=== PATIENT | female | born 1990 | race Two or more races ===

== ENCOUNTER 2020-06-20 20:40 | Emergency (ER) | payer BC ==
[2020-06-20] MEDS ORDERED: HYDROmorphone 1 MG/ML Syringe IVPUSH STA (21:28)
[2020-06-20] MEDS ORDERED: Ondansetron 4 MG/2 ML SDV IVPUSH ONE (21:28)
[2020-06-20] MEDS ORDERED: Sodium Chloride 0.9% 1,000 ML IV SCH (21:30)
--- NOTE | 2020-06-20 21:38 | EDM.PDOC ---
ED HPI GENERAL MEDICAL PROBLEM - General Chief Complaint: Gastrointestinal Problem Stated Complaint: SOB Time Seen by Provider: 06/20/20 21:18 Source of Information: Reports: Patient, Family () History Limitations: Reports: No Limitations - History of Present Illness INITIAL COMMENTS - FREE TEXT/NARRATIVE: Mrs. Quach is a very pleasant 29-year-old woman who now presents the ED with postoperative abdominal pain. She states that she underwent a laparoscopic cholecystectomy at [facility] this morning. She states she had she was doing well until around 20:20, when she developed right shoulder pain. She states that she was told that she might get such pain, due to air in the abdomen, but a short time later she developed right upper quadrant pain, particularly with inspiration, which she states she was not warned about. She states that the pain with inspiration is causing her to feel somewhat short of breath. She states that she took 1 tablet of oxycodone 5 mg around 20:50, without significant improvement in her pain, therefore she came to the ED for evaluation. The patient states that she has elevated LFTs, and has therefore been told not to take either ibuprofen or acetaminophen. Here in the ED, the patient's initial BP is found to be elevated 166/118, with bradycardia 55 bpm. She is afebrile, saturating 100% on room air. She appears to be uncomfortable, but in no acute distress. The patient states that she has been experiencing nausea and similar right upper quadrant abdominal pain since approximately 05/21/2020, when she underwent a laparoscopic sleeve gastrectomy. Otherwise, the patient denies having a recent fever, chills, sore throat, ear pain, nasal or sinus congestion, cough, dyspnea, chest pain, palpitations, vomiting, constipation, diarrhea, urinary symptoms, recent weight gain or weight loss, recent bloody bowel movements or black bowel movements, recent joint aches, headaches, or rashes. The patient's PCP is Nathalie Page NP. Her Bariatric Surgeon is Dr. Mindi Diaz, at [facility]. Her Senior Director Creative Services is Dr. Valeriano Sutherland. Right Upper Abdomen Pain Score (Numeric/FACES): 10 - Related Data Allergies Allergy/AdvReac Type Severity Reaction Status Date / Time adhesive Allergy Hives Verified 06/20/20 20:58 Penicillins Allergy Vomiting Verified 06/20/20 20:58 metal Allergy Hives Uncoded 06/20/20 20:58 Home Meds: Home Meds Famotidine 20 oz PO DAILY 06/20/20 [History] Folic Acid 1 mg PO DAILY 06/20/20 [History] Methotrexate 10 mg PO Q7D 06/20/20 [History] Omeprazole 20 mg PO DAILY 06/20/20 [History] Past Medical History Gastrointestinal History: Reports: GERD Musculoskeletal History: Reports: Other (See Below) (Psoriatic arthritis) Neurological History: Reports: Migraines Dermatologic History: Reports: Psoriasis - Past Surgical History GI Surgical History: Reports: Bariatric Procedure (laparoscopic sleeve gastrectomy 05/21/2020), Cholecystectomy (06/20/2020) Female Surgical History: Reports: Hysterectomy (partial) Social & Family History - Tobacco Use Tobacco Use Status *Q: Never Tobacco User Second Hand Smoke Exposure: No - Caffeine Use Caffeine Use: Reports: None - Alcohol Use Alcohol Use History: No - Recreational Drug Use Recreational Drug Use: No - Living Situation & Occupation Living situation: Reports: , with Spouse, with Family (2 kids) Occupation: Unemployed ED ROS GENERAL - Review of Systems Review Of Systems: Comprehensive ROS is negative, except as noted in HPI. ED EXAM, GI/ABD - Physical Exam Exam: See Below Exam Limited By: No Limitations General Appearance: Alert, WD/WN, Mild Distress (appears to be uncomfortable) Eyes: Bilateral: Normal Appearance, EOMI Ears: Normal External Exam, Hearing Grossly Normal Nose: Normal Inspection Throat/Mouth: Normal Inspection, Normal Lips, Normal Voice, No Airway Compromise Head: Atraumatic, Normocephalic Neck: Normal Inspection, Full Range of Motion Respiratory/Chest: No Respiratory Distress, Lungs Clear, Normal Breath Sounds, No Accessory Muscle Use Cardiovascular: Normal Peripheral Pulses, Regular Rate, Rhythm, No Edema, No Gallop, No JVD, No Murmur, No Rub GI/Abdominal Exam: Soft, No Organomegaly, No Distention, No Abnormal Bruit, No Mass, Pelvis Stable, Tender (right upper quadrant, plus appropriate fina- incisional tenderness), Abnormal Bowel Sounds (diminished) Back Exam: Normal Inspection, Full Range of Motion, NT Extremities: Normal Inspection, Normal Range of Motion, No Pedal Edema, Normal Capillary Refill Neurological: Alert, Oriented, Normal Cognition, No Motor/Sensory Deficits Psychiatric: Normal Affect Skin Exam: Warm, Dry, Intact, Normal Color, No Rash Course - Vital Signs Last Recorded V/S: Last Vital Signs Temp 36.3 C 06/20/20 20:52 Pulse 55 L 06/20/20 20:52 Resp 18 06/20/20 20:52 BP 166/118 H 06/20/20 20:52 Pulse Ox 100 06/20/20 20:52 - Orders/Labs/Meds Orders: Active Orders 24 hr Category Date Time Status Abdomen Pelvis w Cont [CT] Stat Exams 06/20/20 21:29 Taken Sodium Chloride 0.9% [Normal Saline] 1,000 ml Med 06/20/20 21:30 Active IV ASDIRECTED Sodium Chloride 0.9% [Saline Flush] Med 06/20/20 22:11 Active 10 ml FLUSH ONETIME PRN Medication Orders Sodium Chloride (Normal Saline) 1,000 mls @ 150 mls/hr IV ASDIRECTED MERARY Last Admin: 06/20/20 21:50 Dose: 150 mls/hr Documented by: BARBARA Sodium Chloride (Sodium Chloride 0.9% 10 Ml Syringe) 10 ml FLUSH ONETIME PRN PRN Reason: Keep Vein Open Last Admin: 06/20/20 23:07 Dose: 10 ml Documented by: Admin: 06/20/20 22:17 Dose: 10 ml Documented by: BARBARA Labs: Laboratory Tests 06/20/20 06/20/20 Range/Units 21:45 21:45 WBC 5.54 (3.98-10.04) K/mm3 RBC 4.84 (3.98-5.22) M/mm3 Hgb 14.0 (11.2-15.7) gm/dl Hct 41.0 (34.1-44.9) % MCV 84.7 (79.4-94.8) fl MCH 28.9 (25.6-32.2) pg MCHC 34.1 (32.2-35.5) g/dl RDW Std Deviation 40.6 (36.4-46.3) fL Plt Count 252 D (182-369) K/mm3 MPV 10.8 (9.4-12.3) fl Neutrophils % (Manual) 92 H (40-60) % Band Neutrophils % 0 (0-10) % Lymphocytes % (Manual) 8 L (20-40) % Atypical Lymphs % 0 % Monocytes % (Manual) 0 L (2-10) % Eosinophils % (Manual) 0 L (0.7-5.8) % Basophils % (Manual) 0 L (0.1-1.2) Platelet Estimate Adequate RBC Morph Comment Normal Sodium 142 (136-145) mEq/L Potassium 3.8 (3.5-5.1) mEq/L Chloride 103 (98-107) mEq/L Carbon Dioxide 25 (21-32) mEq/L Anion Gap 17.8 H (5-15) BUN 5 L (7-18) mg/dL Creatinine 0.9 (0.55-1.02) mg/dL Est Cr Clr Drug Dosing 74.92 mL/min Estimated GFR (MDRD) > 60 (>60) mL/min BUN/Creatinine Ratio 5.6 L (14-18) Glucose 149 H (74-106) mg/dL Calcium 9.5 (8.5-10.1) mg/dL Magnesium 2.3 (1.8-2.4) mg/dl Total Bilirubin 0.7 (0.2-1.0) mg/dL AST 74 H (15-37) U/L ALT 147 H (14-59) U/L Alkaline Phosphatase 79 (46-116) U/L Total Protein 7.9 (6.4-8.2) g/dl Albumin 4.3 (3.4-5.0) g/dl Globulin 3.6 gm/dL Albumin/Globulin Ratio 1.2 (1-2) Lipase 179 (73-393) U/L Meds: Medications Generic Name Dose Route Start Last Admin Trade Name Freq PRN Reason Stop Dose Admin Sodium Chloride 1,000 mls @ 150 mls/hr 06/20/20 21:30 06/20/20 21:50 Normal Saline IV 150 mls/hr ASDIRECTED MERARY Administration Sodium Chloride 10 ml 06/20/20 22:11 06/20/20 23:07 Sodium Chloride 0.9% 10 Ml Syringe FLUSH 10 ml ONETIME PRN Administration Keep Vein Open Discontinued Medications Generic Name Dose Route Start Last Admin Trade Name Freq PRN Reason Stop Dose Admin Diatrizoate Meglum/Diatrizoate Sod 40 ml 06/20/20 22:11 06/20/20 23:07 Diatrizoate Meglumine/Diatrizoate Sodium 37% 120 Ml Bottle PO 06/20/20 22:12 45 ml ONETIME ONE Administration Hydromorphone HCl 1 mg 06/20/20 21:28 06/20/20 21:52 Hydromorphone 1 Mg/Ml Syringe IVPUSH 06/20/20 21:29 1 mg ONETIME STA Administration Iopamidol 100 ml 06/20/20 22:11 06/20/20 23:07 Iopamidol 612 Mg/Ml 100 Ml Bottle IVPUSH 06/20/20 22:12 100 ml ONETIME ONE Administration Ondansetron HCl 4 mg 06/20/20 21:28 06/20/20 21:51 Ondansetron 4 Mg/2 Ml Sdv IVPUSH 06/20/20 21:29 4 mg ONETIME ONE Administration - Re-Assessments/Exams Free Text/Narrative Re-Assessment/Exam: 06/20/20 21:30 As above, the patient underwent a laparoscopic cholecystectomy at [facility] this morning, and states that she was doing well until about 20:20, when she developed right shoulder pain, followed by right upper quadrant pain with inspiration, to the point that it is difficult for her to take deep breaths at this time. No significant relief despite taking 1 tablet of oxycodone around 20:50. On examination, the patient has diminished bowel sounds, which would be expected at this point, and appropriate periincisional tenderness, along with right upper quadrant tenderness. My main concern is whether or not leak at the clip of the neck of the gallbladder, therefore I have ordered a work-up that includes several blood tests and a CT of the abdomen and pelvis with oral and IV contrast. In the meantime, the patient will be given IV Dilaudid, IV Zofran, and IV fluid. 06/20/20 22:33 The patient's CBC is unremarkable. Her CMP is remarkable for an anion gap slightly elevated at 17.8, but with a bicarbonate normal at 25. She has mild hyperglycemia of 149, and her AST/ALT are mildly elevated at 74/147, respectively, with the remainder of her CMP being unremarkable. Her magnesium level is within normal limits at 2.3. Her lipase level is within normal limits at 179. 06/20/20 23:34 CT of the abdomen and pelvis with oral and IV contrast is read by [facility] as: 1. Free intraperitoneal air which is likely related to the patient's stated recent cholecystectomy. 2. Small amount of fluid is present within the gallbladder fossa. This could be postoperative in nature. If there is concern for possible bile leak, consider HIDA scan. 06/20/20 23:[address] images to [facility]. 06/20/20 23:45 Case discussed with Yonathan at [facility] at 23:37. The CT images did not come through on their end. We will see if our fire range technician can push them, and Yonathan will call us back. 06/21/20 00:11 Yonathan called back at 23:37. The CT images never came across. She had contacted [facility] to see if they could push the images, but was unable. Case then discussed with Dr. Romo, Surgeon on-call at [facility]. She felt that the small amount of fluid reported by the Radiologist is not consistent with a bile leak. She recommended that I discharge the patient home, then have the patient contact the office of Dr. Stock in the morning. 06/21/20 00:15 Test results and my conversation with Dr. Romo discussed with the patient and her . She is agreeable with the plan. Departure - Departure Time of Disposition: 00:17 Disposition: Home, Self-Care 01 Condition: Good Clinical Impression: Status post cholecystectomy, Postoperative pain - Discharge Information *PRESCRIPTION DRUG MONITORING PROGRAM REVIEWED*: Not Applicable *COPY OF PRESCRIPTION DRUG MONITORING REPORT IN PATIENT [place]: Not Applicable Referrals: Nathalie Page NP [Primary Care Provider] - Valeriano Sutherland MD [Ordering Only Provider] - Forms: ED Department Discharge Additional Instructions: You were seen in the emergency room for upper right abdominal pain with painful breathing following a laparoscopic cholecystectomy Thursday. Work-up in the ER included several blood tests and a CT of your abdomen and pelvis with oral and IV contrast. Your entire work-up was unremarkable. The CT did not indicate a bile leak. Your case was discussed with the Surgeon Dr. Lynsey Romo, who felt that you are safe to discharge home, but she recommended that you contact the office of your Surgeon, Dr. Mindi Stock, in the morning. Dr. Stock may wish to see you or order additional tests. You may continue to take your current oxycodone as prescribed. If any other problems, please do not hesitate to return to the ER. Sepsis Event Note (ED) - Evaluation Sepsis Screening Result: No Definite Risk - Focused Exam Vital Signs: Vital Signs Temp Pulse Resp BP Pulse Ox 06/20/20 20:52 36.3 C 55 L 18 166/118 H 100 - My Orders Last 24 Hours: My Active Orders 06/20/20 21:29 Abdomen Pelvis w Cont [CT] Stat 06/20/20 21:30 Sodium Chloride 0.9% [Normal Saline] 1,000 ml IV ASDIRECTED 06/20/20 22:11 Sodium Chloride 0.9% [Saline Flush] 10 ml FLUSH ONETIME PRN - Assessment/Plan Last 24 Hours: My Active Orders 06/20/20 21:29 Abdomen Pelvis w Cont [CT] Stat 06/20/20 21:30 Sodium Chloride 0.9% [Normal Saline] 1,000 ml IV ASDIRECTED 06/20/20 22:11 Sodium Chloride 0.9% [Saline Flush] 10 ml FLUSH ONETIME PRN
[2020-06-20] MEDS ORDERED: Iopamidol 612 MG/ML 100 ML Bottle IVPUSH ONE (22:11)
[2020-06-20] MEDS ORDERED: Diatrizoate Meglumine/Diatrizoate Sodium 37% 120 ML Bottle PO ONE (22:11)
[2020-06-20] MEDS: Sodium Chloride 0.9% 10 ML Syringe FLUSH PRN ×2 (22:17→23:07)
--- NOTE | 2020-06-21 08:38 | CT ---
CT abdomen and pelvis Technique: Multiple axial sections were obtained from above the dome of the diaphragm inferiorly through the pubic symphysis. Intravenous and oral contrast were utilized. Delayed images were also obtained to the bladder. Reconstructed coronal and sagittal images were obtained. Findings: Small amount of free air is noted within the upper abdomen anterior to the liver compatible with recent surgery. Slight atelectasis is noted within the posterior right lung base. Liver contains no focal abnormality. Small amount of increased density is noted within the region of the gallbladder fossa containing a small amount of fluid most likely postsurgical from prior cholecystectomy. Spleen appears within normal limits. Minimal free air is noted posterior to the spleen. Pancreas is normal. Kidneys show symmetric contrast enhancement without hydronephrosis or mass. Abdominal aorta shows no aneurysm. No retroperitoneal adenopathy or mesenteric abnormalities are noted. Appendix is seen which is normal. No pelvic mass or adenopathy is appreciated. Delayed images shows contrast within the distal ureters and within the bladder. Soft tissue air is noted within the right anterior abdominal wall compatible with previous surgery. Bone window settings were reviewed which show no acute osseous abnormality. Impression: 1. Free air within the abdomen compatible with recent surgery. 2. Slight increased density within the gallbladder fossa which is most likely due to previous surgery. Small amount of adjacent fluid is seen which is likely incidental although difficult to completely exclude biliary leak if patient has correlating symptoms. 3. Soft tissue air within the right anterior abdominal wall compatible with previous surgery. 4. No other acute abnormality is appreciated. Diagnostic code #3 I agree with preliminary report from [facility], finalized on 06/21/20, 12:31 AM CDT, code 1
== END 2020-06-21 00:26 | disposition home or self-care (01) ==
LOC: JD.ED 20:40
DX: G89.18 Other acute postprocedural pain (principal); R10.9 Unspecified abdominal pain; K21.9 Gastro-esophageal reflux disease without esophagitis; Z79.899 Other long term (current) drug therapy; Z91.018 Allergy to other foods; Z88.0 Allergy status to penicillin; Z91.048 Other nonmedicinal substance allergy status; Z90.49 Acquired absence of other specified parts of digestive tract
CPT/HCPCS: 36415; 74177; 80053; 83690; 83735; 85007; 85027; 96374; 96375; 99284; J1170; J2405; J7030; Q9963; Q9967; 99283

== ENCOUNTER 2020-06-25 10:04 | Emergency (ER) | payer BC ==
[2020-06-25] MEDS ORDERED: Sodium Chloride 0.9% 10 ML Syringe FLUSH PRN (10:38)
[2020-06-25] MEDS ORDERED: Ondansetron 4 MG/2 ML SDV IVPUSH ONE (10:38)
[2020-06-25] MEDS ORDERED: HYDROmorphone 1 MG/ML Syringe IVPUSH ONE (10:40)
--- NOTE | 2020-06-25 10:44 | EDM.PDOC ---
ED HPI GENERAL MEDICAL PROBLEM - General Chief Complaint: Abdominal Pain Stated Complaint: ABDOMINAL PAIN Time Seen by Provider: 06/25/20 10:27 Source of Information: Reports: Patient, Provider History Limitations: Reports: No Limitations - History of Present Illness INITIAL COMMENTS - FREE TEXT/NARRATIVE: The patient presents from [facility] for abdominal pain, nausea and vomiting. The patient had a gastric sleeve done at [facility] in [place] by Dr Diaz on 05/21/20. A few weeks later she had trouble with her gallbladder and had that removed on 06/20/20. She has pain in the upper abdomen with both surgeries but there is now a different pain the past couple days to the left abdomen radiating to the back. She has nausea and she did vomit yesterday. She went to see Nathalie Page at the [facility] and she did labs. He WBC was normal. Her liver enzymes were elevated with an AST of 161 and ALT of 281. It was 39 and 91 five days ago. Her urine shows no UTI but she does have blood. She has no fever, chills, cough, congestion, chest pains, or shortness of breath. Onset: Gradual Duration: Day(s): Location: Reports: Abdomen, Back Quality: Reports: Sharp Severity: Severe Improves with: Reports: None Worsens with: Reports: None Associated Symptoms: Denies: Chest Pain, Cough, Fever/Chills, Headaches, Nausea/Vomiting, Shortness of Breath Left Abdomen Pain Score (Numeric/FACES): 7 - Related Data Allergies Allergy/AdvReac Type Severity Reaction Status Date / Time adhesive Allergy Hives Verified 06/25/20 10:34 Penicillins Allergy Vomiting Verified 06/25/20 10:34 metal Allergy Hives Uncoded 06/25/20 10:34 Home Meds: Home Meds Famotidine 20 mg PO DAILY 06/20/20 [History] Methotrexate 10 mg PO Q7D 06/20/20 [History] Hydrocodone/Acetaminophen [Hydrocodone-Acetamin 5-325 mg] 1 - 2 each PO Q6HR PRN #20 tablet 06/25/20 [Rx] Tamsulosin HCl [Flomax] 0.4 mg PO DAILY #7 cap.er.24h 06/25/20 [Rx] oxyCODONE HCl/Acetaminophen [Percocet 5-325 mg Tablet] 1 - 2 each PO Q6HR PRN #20 tablet 06/25/20 [Rx] Past Medical History Gastrointestinal History: Reports: GERD 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: Musculoskeletal History: Reports: Other (See Below) Other Musculoskeletal History: psoriatic arthritis Neurological History: Reports: Migraines Dermatologic History: Reports: Psoriasis - Past Surgical History GI Surgical History: Reports: Bariatric Procedure, Cholecystectomy Female Surgical History: Reports: Hysterectomy Social & Family History - Caffeine Use Caffeine Use: Reports: None - Living Situation & Occupation Living situation: Reports: , with Spouse, with Family (2 kids) Occupation: Unemployed ED ROS GENERAL - Review of Systems Review Of Systems: See Below Constitutional: Reports: No Symptoms HEENT: Reports: No Symptoms Respiratory: Reports: No Symptoms Cardiovascular: Reports: No Symptoms Endocrine: Reports: No Symptoms GI/Abdominal: Reports: Abdominal Pain, Nausea, Vomiting : Reports: No Symptoms Musculoskeletal: Reports: No Symptoms ED EXAM, RENAL/ - Physical Exam Exam: See Below Exam Limited By: No Limitations General Appearance: Alert, No Apparent Distress Ears: Normal External Exam Nose: Normal Inspection Head: Atraumatic, Normocephalic Neck: Normal Inspection Respiratory/Chest: No Respiratory Distress, Lungs Clear, Normal Breath Sounds Cardiovascular: Regular Rate, Rhythm, No Edema, No Murmur GI/Abdominal: Soft, No Organomegaly, No Mass, Tender (Mild tenderness to the left abdomen radiating to the left flank) Back Exam: No: CVA Tenderness (L) Extremities: Normal Inspection Course - Vital Signs Last Recorded V/S: Last Vital Signs Temp 97.5 F 06/25/20 10:30 Pulse 85 06/25/20 10:30 Resp 16 06/25/20 10:30 BP 150/99 H 06/25/20 10:30 Pulse Ox 99 06/25/20 10:30 - Orders/Labs/Meds Orders: Active Orders 24 hr Category Date Time Status Peripheral IV Care [RC] . DIRECTED Care 06/25/20 10:40 Active Sodium Chloride 0.9% [Normal Saline] 1,000 ml Med 06/25/20 10:45 Active IV ASDIRECTED Sodium Chloride 0.9% [Saline Flush] Med 06/25/20 10:38 Active 10 ml FLUSH ASDIRECTED PRN ED Antiemetic Medication Reflex [OM.PC] Stat Oth 06/25/20 10:40 Ordered Peripheral IV Insertion Adult [OM.PC] Stat Oth 06/25/20 10:38 Ordered Medication Orders Sodium Chloride (Normal Saline) 1,000 mls @ 125 mls/hr IV ASDIRECTED MERARY Last Admin: 06/25/20 11:05 Dose: 125 mls/hr Documented by: DEBBIE Sodium Chloride (Sodium Chloride 0.9% 10 Ml Syringe) 10 ml FLUSH ASDIRECTED PRN PRN Reason: Keep Vein Open Last Admin: 06/25/20 11:07 Dose: 10 ml Documented by: DEBBIE Labs: Laboratory Tests 06/25/20 Range/Units 11:00 Lipase 201 (73-393) U/L Meds: Medications Generic Name Dose Route Start Last Admin Trade Name Freq PRN Reason Stop Dose Admin Sodium Chloride 1,000 mls @ 125 mls/hr 06/25/20 10:45 06/25/20 11:05 Normal Saline IV 125 mls/hr ASDIRECTED MERARY Administration Sodium Chloride 10 ml 06/25/20 10:38 06/25/20 11:07 Sodium Chloride 0.9% 10 Ml Syringe FLUSH 10 ml ASDIRECTED PRN Administration Keep Vein Open Discontinued Medications Generic Name Dose Route Start Last Admin Trade Name Freq PRN Reason Stop Dose Admin Hydromorphone HCl 1 mg 06/25/20 10:40 06/25/20 11:06 Hydromorphone 1 Mg/Ml Syringe IVPUSH 06/25/20 10:41 1 mg ONETIME ONE Administration Ondansetron HCl 4 mg 06/25/20 10:38 06/25/20 11:05 Ondansetron 4 Mg/2 Ml Sdv IVPUSH 06/25/20 10:39 4 mg ONETIME ONE Administration - Re-Assessments/Exams Free Text/Narrative Re-Assessment/Exam: 06/25/20 11:09 I ordered an IV NS at 125mL/hr, zofran 4mg IV, dilaudid 1mg IV, CT of her abdomen and pelvis without IV or oral contrast, and I ordered a lipase. 06/25/20 11:[address] shows 5mm obstructing calculus within the distal left ureter at the UVJ. This calculus causes dilatation of the left ureter. Small nonobstructing stone within the left kidney. No additional abnormality is appreciated on noncontrast CT study of the abdomen and pelvis. 06/25/20 12:01 I called Nathalie Page to let her know. I will give her some hydrocodone and flomax. Departure - Departure Time of Disposition: 12:10 Disposition: Home, Self-Care 01 Condition: Good Clinical Impression: Ureteral colic, Kidney stone on left side, Ureteral calculus, left, Elevated liver enzymes - Discharge Information *PRESCRIPTION DRUG MONITORING PROGRAM REVIEWED*: Not Applicable *COPY OF PRESCRIPTION DRUG MONITORING REPORT IN PATIENT [place]: Not Applicable Prescriptions: Tamsulosin HCl [Flomax] 0.4 mg PO DAILY #7 cap.er.24h Hydrocodone/Acetaminophen [Hydrocodone-Acetamin 5-325 mg] 1 - 2 each PO Q6HR PRN #20 tablet PRN Reason: Pain Referrals: Nathalie Page NP [Primary Care Provider] - Dawood Barth MD [Ordering Only Provider] - 1 Week Forms: ED Department Discharge Additional Instructions: Drink plenty of fluids. Take flomax daily. Take tylenol or motrin as needed for pain. If that does not help, try the percocet. It is hard to say when you will pass the stone. If you do not pass it within a week follow up with Dr Barth. Please return if you are worse. Your liver enzymes were elevated. Follow up with Nathalie Page in 2 weeks to have them rechecked. Sepsis Event Note (ED) - Evaluation Sepsis Screening Result: No Definite Risk - Focused Exam Vital Signs: Vital Signs Temp Pulse Resp BP Pulse Ox 06/25/20 10:30 97.5 F 85 16 150/99 H 99 - My Orders Last 24 Hours: My Active Orders 06/25/20 10:38 Sodium Chloride 0.9% [Saline Flush] 10 ml FLUSH ASDIRECTED PRN Peripheral IV Insertion Adult [OM.PC] Stat 06/25/20 10:40 Peripheral IV Care [RC] . DIRECTED ED Antiemetic Medication Reflex [OM.PC] Stat 06/25/20 10:45 Sodium Chloride 0.9% [Normal Saline] 1,000 ml IV ASDIRECTED - Assessment/Plan Last 24 Hours: My Active Orders 06/25/20 10:38 Sodium Chloride 0.9% [Saline Flush] 10 ml FLUSH ASDIRECTED PRN Peripheral IV Insertion Adult [OM.PC] Stat 06/25/20 10:40 Peripheral IV Care [RC] . DIRECTED ED Antiemetic Medication Reflex [OM.PC] Stat 06/25/20 10:45 Sodium Chloride 0.9% [Normal Saline] 1,000 ml IV ASDIRECTED
[2020-06-25] MEDS ORDERED: Sodium Chloride 0.9% 1,000 ML IV SCH (10:45)
--- NOTE | 2020-06-25 11:31 | CT ---
CT abdomen and pelvis Technique: Multiple axial sections were obtained from above the dome of the diaphragm inferiorly through the pubic symphysis. Intravenous contrast was utilized. Study has been performed as a ureteral stone protocol. Comparison: Prior CT abdomen and pelvis study of 06/20/20. Findings: 5 mm calcification is noted within the distal left ureter at the UVJ. This is compatible with an obstructing calculus. There is mild prominence of the left ureteral diameter. Very small nonobstructing stone is noted within the left kidney. Visualized lung bases show nothing acute. Noncontrast appearance of the liver shows no focal abnormality. Spleen size is normal. Surgical material is seen within the stomach. Surgical clips are seen from prior cholecystectomy. Adrenal glands show no nodule. Pancreas appears within normal limits. Abdominal aorta shows no aneurysm. No retroperitoneal adenopathy or mesenteric abnormalities are seen. Appendix is seen which is normal. No pelvic mass or adenopathy is seen. Bone window settings were reviewed which appear within normal limits for the patient's age. No acute osseous abnormality is appreciated. Small fat-containing umbilical hernia is noted. Impression: 1. 5 mm obstructing calculus within the distal left ureter at the UVJ. This calculus causes dilatation of the left ureter. 2. Small nonobstructing stone within the left kidney. 3. No additional abnormality is appreciated on noncontrast CT study of the abdomen and pelvis. Diagnostic code #3
== END 2020-06-25 12:20 | disposition home or self-care (01) ==
LOC: JD.ED 10:04
DX: N20.2 Calculus of kidney with calculus of ureter (principal); R74.8 Abnormal levels of other serum enzymes; K21.9 Gastro-esophageal reflux disease without esophagitis; Z91.048 Other nonmedicinal substance allergy status; Z88.0 Allergy status to penicillin; Z79.899 Other long term (current) drug therapy
CPT/HCPCS: 36415; 74176; 83690; 96374; 96375; 99284; J1170; J2405; J7030

== ENCOUNTER 2020-07-24 16:17 | Emergency (ER) | payer BC ==
[2020-07-24] MEDS ORDERED: Ondansetron 4 MG Tab.DIS PO ONE (16:39)
[2020-07-24] MEDS ORDERED: Sodium Chloride 0.9% 10 ML Syringe FLUSH PRN (16:44)
[2020-07-24] MEDS ORDERED: Sodium Chloride 0.9% 1,000 ML IV ONE (16:44)
--- NOTE | 2020-07-24 16:57 | EDM.PDOC ---
ED HPI GENERAL MEDICAL PROBLEM - General Chief Complaint: Gastrointestinal Problem Stated Complaint: VOMITING Time Seen by Provider: 07/24/20 16:27 Source of Information: Reports: Patient, RN Notes Reviewed History Limitations: Reports: No Limitations - History of Present Illness INITIAL COMMENTS - FREE TEXT/NARRATIVE: Patient is a 29-year-old female who presents to the ER for evaluation of her vomiting. Notes that she has had recent bariatric surgery in May 21, 2020, with a subsequent cholecystectomy on June 20, 2020. She was seen at the walk-in clinic yesterday, for not feeling well, and was diagnosed with a viral respiratory illness. She is on home with prednisone and conservative measures. She developed vomiting, so much that she cannot keep any sort of food or fluids down much at all she called her bariatric surgeon, and they told her to come to the ER for IV fluids due to her not being able to keep anything down. She has not had any fevers or chills, productive cough. She is feeling lightheaded, she does have a dry hacking cough. - Related Data Allergies Allergy/AdvReac Type Severity Reaction Status Date / Time adhesive Allergy Hives Verified 07/24/20 16:36 Penicillins Allergy Vomiting Verified 07/24/20 16:36 metal Allergy Hives Uncoded 06/25/20 10:34 Home Meds: Home Meds Famotidine 20 mg PO DAILY 06/20/20 [History] Methotrexate 10 mg PO Q7D 06/20/20 [History] Hydrocodone/Acetaminophen [Hydrocodone-Acetamin 5-325 mg] 1 - 2 each PO Q6HR PRN #20 tablet 06/25/20 [Rx] Tamsulosin HCl [Flomax] 0.4 mg PO DAILY #7 cap.er.24h 06/25/20 [Rx] oxyCODONE HCl/Acetaminophen [Percocet 5-325 mg Tablet] 1 - 2 each PO Q6HR PRN #20 tablet 06/25/20 [Rx] Promethazine [Phenergan] 25 mg PO Q6H PRN #20 tab 07/24/20 [Rx] Past Medical History HEENT History: Reports: Impaired Vision Gastrointestinal History: Reports: GERD 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: Musculoskeletal History: Reports: Other (See Below) Other Musculoskeletal History: psoriatic arthritis Neurological History: Reports: Migraines Dermatologic History: Reports: Psoriasis - Past Surgical History GI Surgical History: Reports: Bariatric Procedure (05/21/20), Cholecystectomy (06/20/20) Female Surgical History: Reports: Hysterectomy Social & Family History - Tobacco Use Tobacco Use Status *Q: Never Tobacco User - Caffeine Use Caffeine Use: Reports: None - Living Situation & Occupation Living situation: Reports: , with Spouse, with Family (2 kids) Occupation: Unemployed ED ROS GENERAL - Review of Systems Review Of Systems: Comprehensive ROS is negative, except as noted in HPI. ED EXAM, GI/ABD - Physical Exam Exam: See Below Exam Limited By: No Limitations General Appearance: Alert, WD/WN, No Apparent Distress Respiratory/Chest: No Respiratory Distress, Lungs Clear, Normal Breath Sounds, No Accessory Muscle Use, Chest Non-Tender Cardiovascular: Normal Peripheral Pulses, Regular Rate, Rhythm, No Edema GI/Abdominal Exam: Normal Bowel Sounds, Soft, Non-Tender, No Distention, No Mass Extremities: Normal Inspection, Normal Capillary Refill Neurological: Alert, Oriented, Normal Cognition, No Motor/Sensory Deficits Psychiatric: Normal Affect, Normal Mood Skin Exam: Warm, Dry, Intact, Normal Color, No Rash Course - Vital Signs Last Recorded V/S: Last Vital Signs Temp 98.7 F 07/24/20 16:33 Pulse 60 07/24/20 16:33 Resp 16 07/24/20 16:33 BP 109/90 07/24/20 16:33 Pulse Ox 98 07/24/20 16:33 - Orders/Labs/Meds Orders: Active Orders 24 hr Category Date Time Status Peripheral IV Care [RC] . DIRECTED Care 07/24/20 16:44 Ordered Sodium Chloride 0.9% [Saline Flush] Med 07/24/20 16:44 Ordered 10 ml FLUSH ASDIRECTED PRN Peripheral IV Insertion Adult [OM.PC] Routine Oth 07/24/20 16:44 Ordered Medication Orders Sodium Chloride (Sodium Chloride 0.9% 10 Ml Syringe) 10 ml FLUSH ASDIRECTED PRN PRN Reason: Keep Vein Open Last Admin: 07/24/20 17:01 Dose: 10 ml Documented by: SHASHANK Labs: Laboratory Tests 07/24/20 07/24/20 07/24/20 Range/Units 16:50 16:50 16:55 WBC 8.65 (3.98-10.04) K/mm3 RBC 4.81 (3.98-5.22) M/mm3 Hgb 14.7 (11.2-15.7) gm/dl Hct 43.4 (34.1-44.9) % MCV 90.2 D (79.4-94.8) fl MCH 30.6 (25.6-32.2) pg MCHC 33.9 (32.2-35.5) g/dl RDW Std Deviation 48.9 H (36.4-46.3) fL Plt Count 295 (182-369) K/mm3 MPV 10.2 (9.4-12.3) fl Neut % (Auto) 81.3 H (34.0-71.1) % Lymph % (Auto) 14.7 L (19.3-51.7) % Darke % (Auto) 3.6 L (4.7-12.5) % Eos % (Auto) 0.1 L (0.7-5.8) Baso % (Auto) 0.1 (0.1-1.2) % Neut # (Auto) 7.03 H (1.56-6.13) K/mm3 Lymph # (Auto) 1.27 (1.18-3.74) K/mm3 Darke # (Auto) 0.31 (0.24-0.36) K/mm3 Eos # (Auto) 0.01 L (0.04-0.36) K/mm3 Baso # (Auto) 0.01 (0.01-0.08) K/mm3 Sodium (136-145) mEq/L Potassium (3.5-5.1) mEq/L Chloride (98-107) mEq/L Carbon Dioxide (21-32) mEq/L Anion Gap (5-15) BUN (7-18) mg/dL Creatinine (0.55-1.02) mg/dL Est Cr Clr Drug Dosing Estimated GFR (MDRD) (>60) mL/min BUN/Creatinine Ratio (14-18) Glucose (70-99) mg/dL Calcium (8.5-10.1) mg/dL Total Bilirubin (0.2-1.0) mg/dL AST (15-37) U/L ALT (14-59) U/L Alkaline Phosphatase (46-116) U/L Total Protein (6.4-8.2) g/dl Albumin (3.4-5.0) g/dl Globulin gm/dL Albumin/Globulin Ratio (1-2) Urine Color Yellow (Yellow) Urine Appearance Clear (Clear) Urine pH 7.5 (5.0-8.0) Ur Specific [place] 1.020 (1.005-1.030) Urine Protein Negative (Negative) Urine Glucose (UA) Negative (Negative) Urine Ketones Negative (Negative) Urine Occult Blood Negative (Negative) Urine Nitrite Negative (Negative) Urine Bilirubin Negative (Negative) Urine Urobilinogen 0.2 (0.2-1.0) Ur Leukocyte Esterase Negative (Negative) Urine Opiates Screen Negative (NNWOSW=615) Ur Buprenorphine Scrn Negative (CUTOFF=10) Ur Oxycodone Screen Negative (GGP8PU=949) Urine Methadone Screen Negative (AJGTVM=728) Ur Propoxyphene Screen Negative (SJNCOY=083) Ur Barbiturates Screen Negative (JPVRJR=310) Ur Tricyclics Screen Negative (WNTPMV=210) Ur Phencyclidine Scrn Negative (CUTOFF=25) Ur Amphetamine Screen Negative (DCKCDF=086) U Methamphetamines Scrn Negative (VBOXKB=981) U Benzodiazepines Scrn Negative (XWCJXQ=176) U Cocaine Metab Screen Negative (YQOOGM=572) U Marijuana (THC) Screen Negative (CUTOFF=50) 07/24/20 Range/Units 16:55 WBC (3.98-10.04) K/mm3 RBC (3.98-5.22) M/mm3 Hgb (11.2-15.7) gm/dl Hct (34.1-44.9) % MCV (79.4-94.8) fl MCH (25.6-32.2) pg MCHC (32.2-35.5) g/dl RDW Std Deviation (36.4-46.3) fL Plt Count (182-369) K/mm3 MPV (9.4-12.3) fl Neut % (Auto) (34.0-71.1) % Lymph % (Auto) (19.3-51.7) % Darke % (Auto) (4.7-12.5) % Eos % (Auto) (0.7-5.8) Baso % (Auto) (0.1-1.2) % Neut # (Auto) (1.56-6.13) K/mm3 Lymph # (Auto) (1.18-3.74) K/mm3 Darke # (Auto) (0.24-0.36) K/mm3 Eos # (Auto) (0.04-0.36) K/mm3 Baso # (Auto) (0.01-0.08) K/mm3 Sodium 143 (136-145) mEq/L Potassium 4.0 (3.5-5.1) mEq/L Chloride 106 (98-107) mEq/L Carbon Dioxide 27 (21-32) mEq/L Anion Gap 14.0 (5-15) BUN 3 L (7-18) mg/dL Creatinine 0.8 (0.55-1.02) mg/dL Est Cr Clr Drug Dosing TNP Estimated GFR (MDRD) > 60 (>60) mL/min BUN/Creatinine Ratio 3.8 L (14-18) Glucose 117 H (70-99) mg/dL Calcium 9.7 (8.5-10.1) mg/dL Total Bilirubin 0.5 (0.2-1.0) mg/dL AST 25 (15-37) U/L ALT 46 (14-59) U/L Alkaline Phosphatase 83 (46-116) U/L Total Protein 8.3 H (6.4-8.2) g/dl Albumin 4.2 (3.4-5.0) g/dl Globulin 4.1 gm/dL Albumin/Globulin Ratio 1.0 (1-2) Urine Color (Yellow) Urine Appearance (Clear) Urine pH (5.0-8.0) Ur Specific [place] (1.005-1.030) Urine Protein (Negative) Urine Glucose (UA) (Negative) Urine Ketones (Negative) Urine Occult Blood (Negative) Urine Nitrite (Negative) Urine Bilirubin (Negative) Urine Urobilinogen (0.2-1.0) Ur Leukocyte Esterase (Negative) Urine Opiates Screen (GEKRJN=376) Ur Buprenorphine Scrn (CUTOFF=10) Ur Oxycodone Screen (XYU1XO=207) Urine Methadone Screen (MPODXE=000) Ur Propoxyphene Screen (MWLKLL=837) Ur Barbiturates Screen (GVIMYC=244) Ur Tricyclics Screen (PHYPMC=597) Ur Phencyclidine Scrn (CUTOFF=25) Ur Amphetamine Screen (TDFYNZ=682) U Methamphetamines Scrn (NLUBYD=209) U Benzodiazepines Scrn (ZJAEWX=872) U Cocaine Metab Screen (NPOWVE=712) U Marijuana (THC) Screen (CUTOFF=50) Meds: Medications Generic Name Dose Route Start Last Admin Trade Name Freq PRN Reason Stop Dose Admin Sodium Chloride 10 ml 07/24/20 16:44 07/24/20 17:01 Sodium Chloride 0.9% 10 Ml Syringe FLUSH 10 ml ASDIRECTED PRN Administration Keep Vein Open Discontinued Medications Generic Name Dose Route Start Last Admin Trade Name Freq PRN Reason Stop Dose Admin Sodium Chloride 1,000 mls @ 999 mls/hr 07/24/20 16:44 07/24/20 17:01 Normal Saline IV 07/24/20 17:44 999 mls/hr ONETIME ONE Administration Ondansetron HCl 4 mg 07/24/20 16:39 07/24/20 17:01 Ondansetron 4 Mg Tab.Dis PO 07/24/20 16:40 4 mg ONETIME ONE Administration - Re-Assessments/Exams Free Text/Narrative Re-Assessment/Exam: 07/24/20 16:57 Patient presents to the ER for her vomiting, we will go ahead get IV started get some basic labs, and give her some fluids and Zofran for management. 07/24/20 18:06 Labs are unremarkable, we will go ahead and reassess the patient at bedside see if she is feeling better and determine discharge disposition after that. Departure - Departure Time of Disposition: 18:10 Disposition: Home, Self-Care 01 Condition: Good Clinical Impression: Vomiting Qualifiers: Vomiting type: unspecified Vomiting Intractability: non-intractable Nausea presence: with nausea Qualified Code(s): R11.2 - Nausea with vomiting, unspecified - Discharge Information *PRESCRIPTION DRUG MONITORING PROGRAM REVIEWED*: No *COPY OF PRESCRIPTION DRUG MONITORING REPORT IN PATIENT DAYLIN: No Instructions: Nausea and Vomiting, Adult, [id number] Referrals: Nathalie Page, FILM BOOKER [Primary Care Provider] - Forms: ED Department Discharge Additional Instructions: You have been evaluated in the ED for nausea/vomiting. Laboratory evaluation was unremarkable for any electrolyte abnormalities or infectious processes. You have received IV fluid in the ED to help with the dehydration from the vomiting and diarrhea. Over the next 24-48 hours please try to limit diet to clear liquids and advance as tolerated to a bland diet to alleviate symptoms of nausea/vomiting. Please use the Phenergan every 6 hours as needed for nausea. This medication can make you somewhat sleepy, so please use caution while using this medication until you know how your body will react to it. This medication was electronically sent to the [facility] located near [facility]. Please return to the ED if your symptoms should change or worsen. Sepsis Event Note (ED) - Evaluation Sepsis Screening Result: No Definite Risk - Focused Exam Vital Signs: Vital Signs Temp Pulse Resp BP Pulse Ox 07/24/20 16:33 98.7 F 60 16 109/90 98 - My Orders Last 24 Hours: My Active Orders 07/24/20 16:44 Peripheral IV Care [RC] . DIRECTED Sodium Chloride 0.9% [Saline Flush] 10 ml FLUSH ASDIRECTED PRN Peripheral IV Insertion Adult [OM.PC] Routine - Assessment/Plan Last 24 Hours: My Active Orders 07/24/20 16:44 Peripheral IV Care [RC] . DIRECTED Sodium Chloride 0.9% [Saline Flush] 10 ml FLUSH ASDIRECTED PRN Peripheral IV Insertion Adult [OM.PC] Routine
== END 2020-07-24 18:24 | disposition home or self-care (01) ==
LOC: JD.ED 16:17
DX: R11.2 Nausea with vomiting, unspecified (principal); Z88.0 Allergy status to penicillin; Z91.048 Other nonmedicinal substance allergy status
CPT/HCPCS: 36415; 80053; 80306; 81003; 85025; 99284; A9270; J7030; 99283

== ENCOUNTER 2020-10-29 09:04 | Emergency (ER) | payer BC | END 2020-10-29 10:09 | LOC: JD.ED 09:04 | DX: Z53.21 Procedure and treatment not carried out due to patient leaving prior to being seen by health care provider (principal) ==

== ENCOUNTER 2021-01-14 19:11 | Emergency (ER) | payer SELFPAY ==
[2021-01-14] MEDS ORDERED: HYDROmorphone 1 MG/ML Syringe IVPUSH ONE (19:42)
[2021-01-14] MEDS ORDERED: Ondansetron 4 MG/2 ML SDV IVPUSH ONE (19:42)
[2021-01-14] MEDS ORDERED: Tamsulosin 0.4 MG Cap.ER PO ONE (19:42)
[2021-01-14] MEDS ORDERED: Sodium Chloride 0.9% 1,000 ML IV SCH (19:45)
--- NOTE | 2021-01-14 19:46 | EDM.PDOC ---
ED HPI GENERAL MEDICAL PROBLEM - General Chief Complaint: Flank Pain Stated Complaint: BLOOD IN URINE/BACK PAIN Time Seen by Provider: 01/14/21 19:23 Source of Information: Reports: Patient History Limitations: Reports: No Limitations - History of Present Illness INITIAL COMMENTS - FREE TEXT/NARRATIVE: Mrs. Quach is a very pleasant 30-year-old woman who now presents the ED s tating that she developed right flank pain, dysuria with urinary frequency, and gross hematuria about 3-4 days ago. The flank pain began radiating to her right lower quadrant a few hours prior to coming to the ED. She has not identified any modifiers to her pain. She has not had a fever, but she states that she has been feeling hot and cold. She reports chronic nausea, but no recent emesis. S he also reports having 2 days of watery diarrhea. She has taken acetaminophen 3 times, which has not helped her symptoms. The patient states that she has had similar symptoms 3 times in the past, all due to kidney stones. All the stones passed on their own. Here in the ED tonight, the patient is found to be hemodynamically stable, afebrile, saturating 100% on room air. She appears to be somewhat uncomfortable, although is in no acute distress. Prior to a few days ago, the patient denies having a recent fever, chills, sore throat, ear pain, nasal or sinus congestion, cough, dyspnea, chest pain, palpitations, nausea, vomiting, constipation, diarrhea, abdominal pain, urinary symptoms, recent weight gain or weight loss, recent bloody bowel movements or black bowel movements, recent joint aches, headaches, or rashes. The patient's PCP is Nathalie Page NP. Her Bariatric Surgeon is Dr. Mindi Diaz, at [facility]. Her Supervisor Metal Placing is Dr. Valeriano Sutherland. She has not received a COVID vaccination, nor an influenza vaccination this season. Right Flank Pain Score (Numeric/FACES): 10 - Related Data Allergies Allergy/AdvReac Type Severity Reaction Status Date / Time adhesive Allergy Hives Verified 07/24/20 16:36 Penicillins Allergy Vomiting Verified 07/24/20 16:36 metal Allergy Hives Uncoded 06/25/20 10:34 Home Meds: Home Meds Famotidine 20 mg PO DAILY 06/20/20 [History] Methotrexate 10 mg PO Q7D 06/20/20 [History] Adalimumab [Humira(Cf) Pen] 01/14/21 [History] Omeprazole 40 mg PO 01/14/21 [History] Propranolol HCl 01/14/21 [History] Past Medical History HEENT History: Reports: Impaired Vision Gastrointestinal History: Reports: GERD Genitourinary History: Reports: Renal Calculus Musculoskeletal History: Reports: Other (See Below) (Psoriatic arthritis) Neurological History: Reports: Migraines Dermatologic History: Reports: Psoriasis - Infectious Disease History Infectious Disease History: Reports: Novel Coronavirus (dx'd Oct 2020) - Past Surgical History GI Surgical History: Reports: Bariatric Procedure (laparoscopic sleeve gastrectomy 05/21/2020), Cholecystectomy (06/20/2020) Female Surgical History: Reports: Hysterectomy (parital) Social & Family History - Tobacco Use Tobacco Use Status *Q: Never Tobacco User - Caffeine Use Caffeine Use: Reports: None - Alcohol Use Alcohol Use History: No - Recreational Drug Use Recreational Drug Use: No - Living Situation & Occupation Living situation: Reports: , with Spouse, with Family (2 kids) Occupation: Employed ([employer]) ED ROS GENERAL - Review of Systems Review Of Systems: Comprehensive ROS is negative, except as noted in HPI. ED EXAM, RENAL/ - Physical Exam Exam: See Below Exam Limited By: No Limitations General Appearance: Alert, WD/WN, Mild Distress (Appears uncomfortable. Moves gingerly.) Eye Exam: Bilateral Eye: EOMI, Normal Inspection Ears: Normal External Exam, Hearing Grossly Normal Nose: Normal Inspection Throat/Mouth: Normal Inspection, Normal Lips, Normal Voice, No Airway Compromise Head: Atraumatic, Normocephalic Neck: Normal Inspection, Full Range of Motion Respiratory/Chest: No Respiratory Distress, Lungs Clear, Normal Breath Sounds, No Accessory Muscle Use Cardiovascular: Normal Peripheral Pulses, Regular Rate, Rhythm, No Edema, No Gallop, No JVD, No Murmur, No Rub GI/Abdominal: Normal Bowel Sounds, Soft, Non-Tender (including in the RLQ), No Organomegaly, No Distention, No Abnormal Bruit, No Mass Back Exam: Normal Inspection, Full Range of Motion, CVA Tenderness (R) (mild). No: CVA Tenderness (L) Extremities: Normal Inspection, Normal Range of Motion, No Pedal Edema, Normal Capillary Refill Neurological: Alert, Oriented, Normal Cognition, No Motor/Sensory Deficits Psychiatric: Normal Affect Skin Exam: Warm, Dry, Intact, Normal Color, No Rash Course - Vital Signs Last Recorded V/S: Last Vital Signs Temp 36.3 C 01/14/21 19:23 Pulse 63 01/14/21 19:23 Resp 18 01/14/21 19:23 BP 116/83 01/14/21 19:23 Pulse Ox 100 01/14/21 19:23 - Orders/Labs/Meds Labs: Laboratory Tests 01/14/21 01/14/21 Range/Units 19:40 19:40 Urine Color Yellow (Yellow) Urine Appearance Slt cloudy H (Clear) Urine pH 5.5 (5.0-8.0) Ur Specific [place] > or = 1.030 (1.005-1.030) Urine Protein 2+ H (Negative) Urine Glucose (UA) Negative (Negative) Urine Ketones 2+ H (Negative) Urine Occult Blood 3+ H (Negative) Urine Nitrite Negative (Negative) Urine Bilirubin 1+ H (Negative) Urine Urobilinogen 0.2 (0.2-1.0) Ur Leukocyte Esterase Negative (Negative) Urine RBC 50-75 H (0-5) /hpf Urine WBC 0-5 (0-5) /hpf Ur Squamous Epith Cells 10-20 H (0-5) /hpf Urine Bacteria Few (FEW) /hpf Urine Mucus Moderate H (FEW) /hpf Urine HCG, Qual Negative (NEGATIVE) Meds: Medications Discontinued Medications Generic Name Dose Route Start Last Admin Trade Name Freq PRN Reason Stop Dose Admin Hydromorphone HCl 1 mg 01/14/21 19:42 01/14/21 19:52 Hydromorphone 1 Mg/Ml Syringe IVPUSH 01/14/21 19:43 1 mg ONETIME ONE Administration Sodium Chloride 1,000 mls @ 150 mls/hr 01/14/21 19:45 01/14/21 19:53 Normal Saline IV 150 mls/hr ASDIRECTED MERARY Administration Ondansetron HCl 4 mg 01/14/21 19:42 01/14/21 19:53 Ondansetron 4 Mg/2 Ml Sdv IVPUSH 01/14/21 19:43 4 mg ONETIME ONE Administration Tamsulosin HCl 0.4 mg 01/14/21 19:42 01/14/21 19:54 Tamsulosin 0.4 Mg Cap.Er PO 01/14/21 19:43 0.4 mg ONETIME ONE Administration - Re-Assessments/Exams Free Text/Narrative Re-Assessment/Exam: 01/14/21 19:43 The patient's history and physical examination are most consistent with a right- sided ureterolith. I have ordered a urinalysis, urine test, and CT of the abdomen and pelvis without contrast to evaluate. In the meantime, the patient will be treated with IV Dilaudid, oral tamsulosin, IV fluid, and IV Zofran. She tells me that she is not supposed to take an NSAID, therefore I have not ordered Toradol. 01/14/21 20:55 The patient's urinalysis is remarkable for slightly cloudy appearance, 3+ occult blood with 50-75 RBCs, leukocyte esterase negative with 0-5 WBCs, nitrate negative with few bacteria, and 10-20 squamous epithelial cells. Her urine test is negative. 01/14/21 21:27 CT of the abdomen and pelvis without contrast is read by vRef[facility] as "The spectrum of findings appears consistent with a recently passed 2 mm stone from right renal collecting system, now within the bladder." 01/14/21 21:31 Test results discussed with the patient. As above, it appears that the patient already passed the stone. She states that she feels comfortable at this time. I recommended that she stay adequately hydrated, and, because a previous stone was made of calcium oxalate and calcium phosphate, I recommended that she increase the calcium in her diet, in order to precipitate out the oxalate and phosphate in her intestine, therefore avoiding it being absorbed into her bloodstream and precipitating out as a kidney stone. Departure - Departure Time of Disposition: 21:32 Disposition: Home, Self-Care 01 Condition: Good Clinical Impression: Ureterolithiasis - Discharge Information *PRESCRIPTION DRUG MONITORING PROGRAM REVIEWED*: Not Applicable *COPY OF PRESCRIPTION DRUG MONITORING REPORT IN PATIENT DAYLIN: Not Applicable Referrals: Nathalie Page NP [Primary Care Provider] - Mindi Diaz MD [Ordering Only Provider] - Valeriano Sutherland MD [Ordering Only Provider] - Forms: ED Department Discharge Additional Instructions: You were seen in the emergency room after experiencing 3 to 4 days of right flank pain, visible blood in your urine, painful urination, and the need to urinate frequently, 2 days of diarrhea, and a few hours of the pain radiating to your lower right abdomen. Work-up in the ER included a urinalysis, a urine test, and a CT of your abdomen and pelvis. Your urinalysis confirmed blood in the urine, but there is no sign of urinary tract infection. Your urine test was negative. The CT scan found a 2 mm stone in your bladder, indicating that you have already passed it. At some point, you will urinate the stone out, but it is so small, that you will not likely notice it. Going forward, we recommend that he stay adequately hydrated. We also recommend that you increase the calcium in your diet. This can best be done by eating dairy products, such as cheese. If any other problems, please do not hesitate to return to the ER. Sepsis Event Note (ED) - Evaluation Sepsis Screening Result: No Definite Risk
--- NOTE | 2021-01-15 06:59 | CT ---
CT abdomen and pelvis Technique: Multiple axial sections were obtained from above the dome of the diaphragm inferiorly through the pubic symphysis. Intravenous and oral contrast was not utilized. Reconstructed coronal and sagittal images were obtained. Comparison: Prior CT abdomen and pelvis study is 06/25/20. Findings: Small calcification is seen within the posterior bladder measuring approximately 2-3 mm. Right kidney shows mildly prominent ureter. Findings are felt compatible with previous ureteral calculus which has passed into the bladder. No other ureteral calculi are seen. No renal stones are noted. Visualized lung bases show nothing acute. Noncontrast appearance of the liver shows no focal abnormality. Prior surgery is noted within the stomach. Prior cholecystectomy is noted. Pancreas appears within normal limits. Spleen size is normal. Abdominal aorta shows no aneurysm. No retroperitoneal adenopathy is seen. No mesenteric abnormalities are seen. Appendix is seen which is normal. No pelvic mass or adenopathy is seen. Single surgical clip is noted within the anterior lower pelvis. Prior hysterectomy is noted. No free fluid or inflammatory change is seen. Bone window settings were reviewed which show no acute osseous finding. Impression: 1. Findings felt compatible with passed right ureteral calculus with calculus now located within the bladder. This calculus measures around 2-3 mm. 2. Prior stomach surgery as noted. Prior hysterectomy is noted. 3. No other acute abnormality is appreciated on noncontrast CT study of the abdomen and pelvis. Diagnostic code #3 I agree with preliminary report from [facility], finalized on 12/14/20, 10:22 PM MICROSCOPIST, code 1
== END 2021-01-14 21:45 | disposition home or self-care (01) ==
LOC: JD.ED 19:11
DX: N20.1 Calculus of ureter (principal); K21.9 Gastro-esophageal reflux disease without esophagitis; Z88.0 Allergy status to penicillin; Z91.048 Other nonmedicinal substance allergy status; Z79.899 Other long term (current) drug therapy; Z86.16 Personal history of COVID-19
CPT/HCPCS: 74176; 81001; 81025; 96374; 96375; 99284; A9270; J1170; J2405; J7030

== ENCOUNTER 2021-12-11 21:41 | Emergency (ER) | payer BC | END 2021-12-11 23:20 | disposition home or self-care (01) | LOC: JD.ED 21:41 | DX: S89.92XA Unspecified injury of left lower leg, initial encounter (principal); S99.922A Unspecified injury of left foot, initial encounter; Z91.048 Other nonmedicinal substance allergy status; Z88.0 Allergy status to penicillin; Z79.899 Other long term (current) drug therapy; Z90.710 Acquired absence of both cervix and uterus; Z90.49 Acquired absence of other specified parts of digestive tract; W22.8XXA Striking against or struck by other objects, initial encounter | CPT/HCPCS: 73590-26-LT; 73590-LT; 73630-26-LT; 73630-LT; 99283 ==

== ENCOUNTER 2022-05-26 20:31 | Emergency (ER) | payer BC ==
[2022-05-26] MEDS ORDERED: Sodium Chloride 0.9% 10 ML Syringe FLUSH PRN (21:41)
[2022-05-26] MEDS ORDERED: Sodium Chloride 0.9% 1,000 ML IV STA (21:45)
[2022-05-26] MEDS ORDERED: Ketorolac 30 MG/ML SDV IVPUSH ONE ×2 (22:31→23:08)
== END 2022-05-26 23:22 | disposition home or self-care (01) ==
LOC: JD.ED 20:31
DX: R55 Syncope and collapse (principal); K21.9 Gastro-esophageal reflux disease without esophagitis; Z88.0 Allergy status to penicillin; Z91.048 Other nonmedicinal substance allergy status; Z79.899 Other long term (current) drug therapy; Z86.16 Personal history of COVID-19; Z90.49 Acquired absence of other specified parts of digestive tract; Z90.710 Acquired absence of both cervix and uterus
CPT/HCPCS: 36415; 70450; 73110; 80053; 85025; 93005; 96361; 96374; 99284; J1885; J7030; 93010

== ENCOUNTER 2023-01-12 08:47 | Day surgery (SDC) | payer BC ==
[~2023-01-12 08:47] MED LIST: Lactated Ringers 1,000 ML IV SCH; Sodium Chloride 0.9% 10 ML Syringe FLUSH PRN; Sodium Chloride 0.9% 10 ML Syringe FLUSH SCH
[2023-01-12] MEDS ORDERED: fentaNYL 100 MCG/2 ML SDV ONE (09:57)
[2023-01-12] MEDS ORDERED: Propofol 200 MG/20 ML SDV ONE (09:57)
[2023-01-12] MEDS ORDERED: Lidocaine 1% 6 ML ONE (09:57)
== END 2023-01-12 11:50 | disposition home or self-care (01) ==
LOC: JD.SDS 08:47
PROVIDERS: ATTEND Surgery
DX: Q43.8 Other specified congenital malformations of intestine (principal); K31.89 Other diseases of stomach and duodenum; K29.70 Gastritis, unspecified, without bleeding; K29.80 Duodenitis without bleeding; K21.9 Gastro-esophageal reflux disease without esophagitis; K44.9 Diaphragmatic hernia without obstruction or gangrene; E66.9 Obesity, unspecified; Z90.49 Acquired absence of other specified parts of digestive tract; Z90.710 Acquired absence of both cervix and uterus; Z79.899 Other long term (current) drug therapy; Z88.0 Allergy status to penicillin; Z91.048 Other nonmedicinal substance allergy status
CPT/HCPCS: 43239; J2704; J3010; J7120; J3490

== ENCOUNTER 2024-06-17 23:51 | Emergency (ER) | payer SELFPAY ==
[2024-06-18] MEDS ORDERED: Sodium Chloride 0.9% 10 ML Syringe FLUSH PRN (00:08)
[2024-06-18 00:43] LABS: BASOPHILS PERCENT AUTO 0.4 % (0.0-1.0); EOSINOPHILS ABSOLUTE AUTO 0.1 K/mm3 (0.0-0.4); EOSINOPHILS PERCENT AUTO 0.5 % (0.0-6.0); HEMATOCRIT 43.6 % (37.0-47.0); HEMOGLOBIN 14.7 gm/dl (12.0-16.0); IMMATURE GRAN ABSOLUTE AUTO 0.05 K/mm3 (0.00-0.05); IMMATURE GRAN PERCENT AUTO 0.5 % (0.0-0.4); LYMPHOCYTES PERCENT AUTO 35.9 % (24.0-44.0); MEAN CORPUSCULAR HEMOGLOBIN 29.8 pg (28.0-32.0); MEAN CORPUSCULAR HGB CONC 33.7 g/dl (32.0-36.0); MEAN CORPUSCULAR VOLUME 88.3 fl (83.0-99.0); MEAN PLATELET VOLUME 9.5 fl (9.4-12.3); MONOCYTES ABSOLUTE AUTO 0.8 K/mm3 (0.0-0.8); MONOCYTES PERCENT AUTO 6.9 % (0.0-8.0); NEUTROPHILS ABSOLUTE AUTO 6.2 K/mm3 (1.8-7.7); NEUTROPHILS PERCENT AUTO 55.8 % (41.0-71.0); PLATELET COUNT,PLT 309 K/mm3 (150-400); RED BLOOD CELL COUNT 4.94 M/mm3 (4.10-5.30); WHITE BLOOD CELL COUNT,WBC 11.06 K/mm3 (3.9-11.3)
[2024-06-18 01:04] LABS: A/G RATIO 1.1 (1-2); ANION GAP 17.7 (5-15); BILIRUBIN TOTAL 0.3 mg/dL (0.2-1.0); BUN/CREATININE RATIO 6.9 (14-18); CALCIUM 9.1 mg/dL (8.5-10.1); CREATININE 1.3 mg/dL (0.55-1.02); EST CRCL DRUG DOSING (CG) 52.16 mL/min; POTASSIUM,K 3.7 mEq/L (3.5-5.1); PROTEIN TOTAL,TP 7.6 g/dl (6.4-8.2)
[2024-06-18] MEDS: Ketorolac 30 MG/ML SDV IVPUSH ONE (02:03)
== END 2024-06-18 02:05 ==
LOC: JD.ED 23:51
DX: R07.81 Pleurodynia (principal); Z90.49 Acquired absence of other specified parts of digestive tract; Z88.0 Allergy status to penicillin; Z88.8 Allergy status to other drugs, medicaments and biological substances; Z91.048 Other nonmedicinal substance allergy status; Z79.899 Other long term (current) drug therapy; Z86.16 Personal history of COVID-19; Z90.710 Acquired absence of both cervix and uterus; X58.XXXA Exposure to other specified factors, initial encounter
CPT/HCPCS: 36415; 71101; 80053; 84703; 85025; 96374; 99283; J1885

== ENCOUNTER 2024-08-07 07:54 | Emergency (ER) | payer SELFPAY ==
[2024-08-07] MEDS: Sodium Chloride 0.9% 1,000 ML IV ONE (08:48)
[2024-08-07] MEDS: Ondansetron 4 MG/2 ML SDV IVPUSH ONE ×2 (08:49)
[2024-08-07] MEDS: Ketorolac 30 MG/ML SDV IVPUSH ONE (08:49)
[2024-08-07 08:50] LABS: BASOPHILS PERCENT AUTO 0.5 % (0.0-1.0); EOSINOPHILS ABSOLUTE AUTO 0.1 K/mm3 (0.0-0.4); EOSINOPHILS PERCENT AUTO 1.1 % (0.0-6.0); HEMATOCRIT 40.4 % (37.0-47.0); HEMOGLOBIN 14.1 gm/dl (12.0-16.0); IMMATURE GRAN ABSOLUTE AUTO 0.02 K/mm3 (0.00-0.05); IMMATURE GRAN PERCENT AUTO 0.3 % (0.0-0.4); LYMPHOCYTES ABSOLUTE AUTO 2.8 K/mm3 (1.0-4.8); LYMPHOCYTES PERCENT AUTO 45.2 % (24.0-44.0); MEAN CORPUSCULAR HEMOGLOBIN 30.1 pg (28.0-32.0); MEAN CORPUSCULAR HGB CONC 34.9 g/dl (32.0-36.0); MEAN CORPUSCULAR VOLUME 86.1 fl (83.0-99.0); MEAN PLATELET VOLUME 9.5 fl (9.4-12.3); MONOCYTES ABSOLUTE AUTO 0.7 K/mm3 (0.0-0.8); MONOCYTES PERCENT AUTO 11.4 % (0.0-8.0); NEUTROPHILS ABSOLUTE AUTO 2.6 K/mm3 (1.8-7.7); NEUTROPHILS PERCENT AUTO 41.5 % (41.0-71.0); PLATELET COUNT,PLT 302 K/mm3 (150-400); RED BLOOD CELL COUNT 4.69 M/mm3 (4.10-5.30); WHITE BLOOD CELL COUNT,WBC 6.22 K/mm3 (3.9-11.3)
[2024-08-07 09:02] LABS: ALBUMIN 3.8 g/dl (3.4-5.0); ANION GAP 16.4 (5-15); BILIRUBIN TOTAL 0.5 mg/dL (0.2-1.0); CALCIUM 9.3 mg/dL (8.5-10.1); EST CRCL DRUG DOSING (CG) 67.8 mL/min; POTASSIUM,K 3.4 mEq/L (3.5-5.1); PROTEIN TOTAL,TP 7.5 g/dl (6.4-8.2)
[2024-08-07 09:32] LABS: APPEARANCE,URINE SLT CLOUDY (Clear); BILIRUBIN,URINE 1+ (Negative); COLOR,URINE AMBER (Yellow); GLUCOSE,URINE NEGATIVE (Negative); KETONES,URINE TRACE (Negative); LEUKOCYTE ESTERASE,URINE NEGATIVE (Negative); NITRITE,URINE NEGATIVE (Negative); OCCULT BLOOD,URINE 3+ (Negative); PH,URINE 6.5 (5.0-8.0); PROTEIN,URINE 2+ (Negative)
[2024-08-07] MEDS: HYDROmorphone 1 MG/ML Syringe IVPUSH ONE (09:34)
[2024-08-07 09:39] LABS: BACTERIA,URINE RARE /hpf (FEW); EPITHELIAL CELLS,URINE 0-5 /hpf (0-5); MUCUS,URINE RARE /hpf (FEW); RBC,URINE TOO NUMEROUS TO CNT /hpf (0-5); WBC,URINE 0-5 /hpf (0-5)
[2024-08-07 09:42] LABS: BARBITURATE SCREEN,URINE NEGATIVE (CUTOFF=200); BENZODIAZEPINES SCREEN,URINE NEGATIVE (CUTOFF=150); BUPRENORPHINE SCREEN,URINE NEGATIVE (CUTOFF=10); METHADONE SCREEN, URINE NEGATIVE (CUTOFF=200); METHAMPHETAMINES SCREEN, URINE NEGATIVE (CUTOFF=500); OXYCODONE SCREEN,URINE NEGATIVE (CUT0FF=100); THC SCREEN,URINE 20 NG/ML NEGATIVE (CUTOFF=50)
[2024-08-07 09:43] LABS: AMPHETAMINES SCREEN, URINE NEGATIVE (CUTOFF=500)
== END 2024-08-07 12:00 | disposition home or self-care (01) ==
LOC: JD.ED 07:54
DX: N13.2 Hydronephrosis with renal and ureteral calculous obstruction (principal); Z88.0 Allergy status to penicillin; Z91.09 Other allergy status, other than to drugs and biological substances; Z91.048 Other nonmedicinal substance allergy status; Z79.899 Other long term (current) drug therapy; Z86.16 Personal history of COVID-19; Z90.710 Acquired absence of both cervix and uterus
CPT/HCPCS: 36415; 74176; 80053; 80306; 81001; 85025; 96361; 96374; 96375; 99284; J1171; J1885; J2405; J7030